=== PATIENT | male | born 1980 | race Caucasian/White ===

== ENCOUNTER → 2021-05-22 | Outpatient (CLI) | payer BC ==
[~2021-05-22] MED LIST: GADOTERATE 5 MMOL/10ML VIAL. INT ART ONE; IOHEXOL 300 MG/ML 50 ML VIAL. INT ART ONE; LIDOCAINE 1% Multi-Dose 20 ML VIAL. ID ONE
--- NOTE | 2021-05-23 08:39 | KCIC ---
EXAMINATION: MR ARTHROGRAM RIGHT SHOULDER CLINICAL HISTORY: Right shoulder pain and LROM since January. NKI. TECHNIQUE: MRI shoulder arthrogram protocol. Procedural portion of the arthrogram reported separately . COMPARISON: Right shoulder radiographs 02/27/2021 FINDINGS: LABRUM: No discrete tear. TENDONS: - Supraspinatus: Intact. - Infraspinatus: Intact. - Subscapularis: Intact. - Teres minor: Intact. - Biceps Tendon: Long head biceps tendon intact and appropriately located. MUSCLES: Rotator cuff muscle bulk and signal intensity within normal limits. GLENOHUMERAL JOINT: Small areas of partial-thickness chondral loss in the glenoid. ACROMIOCLAVICULAR JOINT: Within normal limits. BONES/MARROW: No evidence of acute fracture or suspicious marrow replacing process. IMPRESSION: No discrete glenoid labrum tear. No full-thickness rotator cuff tear. Electronically signed by: Naseem Medrano DO (05/23/2021 8:36 AM) [place]
--- NOTE | 2021-05-23 16:35 | KCIC ---
EXAM: Right shoulder joint injection WITH Fluoroscopic guidance DATE: 05/22/2021 2:24 PM CLINICAL HISTORY: Reason: RIGHT SHOULDER PAIN, LIMITED ROM / Spl. Instructions: FT 0:08, IMG 2, 5ML L IDOCAINE, 5ML OMNI 300, 10ML SALINE, 0.1ML CLARISCAN / History: COMPARISON: None pertinent TECHNIQUE: The patient was informed of the indications and alternatives for this procedure as well as risks and benefits. No immediate contraindication identified. The patient provided informed, written consent. Laterality was confirmed by the entire team following a time out. Following initial Right shoulder joint localization, a suitable area was sterilely prepped and draped . Local anesthesia was administered with 1% xylocaine. With intermittent fluoroscopic observation, a 22-gauge spinal needle was advanced into the Right shoulder joint sheath/capsule with confirmation of intra-synovial position with infusion of less than 1 cc iodinated contrast. Subsequent infusion 12 m L solution containing 10 cc saline, 5 cc lidocaine 1%, 5 cc Isovue and 0.1 cc gadolinium. Hemostasis with local pressure. Local clinical exam negative for immediate complication. Patient informed re local potential signs or symptoms that may indicate need to return to ER/Ordering physician for further evaluation. Patient informed re precautionary measures after intra-synovial in jection of anesthetic. Patient expressed understanding. Performing Physicians: Dr. Lori Sahu Blood Loss: 0 cc Total Fluoroscopy time: 8 seconds Total spot images taken: 0 IMPRESSION: Successful intra-synovial injection Right shoulder joint with gadolinium contrast pre-MRI per clinica l request. Electronically signed by: Slick Sahu MD (05/23/2021 4:33 PM) [facility] [employer] 1
== END | disposition home or self-care (01) ==
LOC: KCIC 14:12
PROVIDERS: ATTEND Physician Assistant
DX: M25.511 Pain in right shoulder (principal)
CPT/HCPCS: 23350; 73222; 77002; A9575; J3490; Q9967